=== PATIENT | female | born 2000 | race Caucasian/White ===

== ENCOUNTER 2023-02-16 16:03 | Outpatient (OUT) | payer OTHER, SELFPAY ==
[2023-02-18 06:09] LABS: HBsAg Screen Negative (Negative); HCV Ab Non Reactive (Non Reactive); HIV Ab/p24 Ag Screen Non Reactive (Non Reactive); Hep A Ab, IgM Negative (Negative); Hep B Core Ab, IgM Negative (Negative)
[2023-02-18 07:09] LABS: HSV 1 IgG, Type Spec 2.28 index (0.00-0.90); HSV 2 IgG, Type Spec <0.91 index (0.00-0.90)
[2023-02-18 22:07] LABS: Neisseria gonorrhoeae, NAA Negative (Negative)
[2023-02-20 03:07] LABS: RPR Non Reactive (Non Reactive)
== END 2023-02-16 16:04 | disposition home or self-care (01) ==
PROVIDERS: PCP Family Medicine; Visit Provider Family Medicine
DX: Z20.2 Contact with and (suspected) exposure to infections with a predominantly sexual mode of transmission (principal)
CPT/HCPCS: 36415; 80074; 86592; 86695; 86696; 87389; 87491; 87591

== ENCOUNTER 2024-06-04 10:29 | Emergency (ER) | payer OTHER, SELFPAY ==
[2024-06-04 10:34] VITALS: BP 158/95; PULSE 72; TEMP 37.1; O2SAT 95; BMI 32.0
--- NOTE | 2024-06-04 10:44 | ED_ITS ---
HPI - Female Genitourinary General Chief complaint: Urogenital-Female Stated complaint: WANTS TO BE TESTED FOR STD Time Seen by Provider: 06/04/24 10:41 Source: patient Mode of arrival: walk-in Limitations: no limitations History of Present Illness HPI Narrative: The patient is a 24-year-old female with no significant known past medical history, patient coming to the ER requesting to be tested for STD with no sym ptoms, the patient is requesting retesting before she started having sexual encounter with a new partner The patient is not being specific with her symptoms or that how many partners she had before this but she mentioned that she was tested before and she is coming again to be tested Related Data Allergies Allergy/AdvReac Type Severity Reaction Status Date / Time No Known Drug Allergies Allergy Verified 06/04/24 10:38 Review of Systems ROS Status of ROS 10 or more systems reviewed and unremark able except as noted in history and below PFSH PFSH Social History Little interest or pleasure in doing things: not at all Feeling down, depressed, or hopeless: not at all Exam Narrative Exam Narrative: Nurses notes and vital signs reviewed and patient is not hypoxic. General: Well-appearing and in no apparent distress. Skin: Warm, dry, no pallor noted. No rash. Head: Normocephalic, atraumatic. Neck: Supple, non-tender. Eye: Pupils are equal, round and EOMI. No scleral icterus. Ears, Nose, Mouth, and Throat: TM are clear, no nasal mucosal hypertrophy. Oral mucosa is moist, no posterior oropharynx erythema, uvula is mid-line Cardiovascular: Regular Rate and Rhythm without murmur, gallop or rub. Respiratory: No accessory muscle use or respiratory distress. Lungs are clear to auscultation, no wheezing, rales or rhonchi Chest Wall: no tenderness Back: No midline thoracic or lumbar vertebral tenderness. No CVA tenderness Musculoskeletal: normal ROM, no calf or popliteal tenderness, no lower extremity edema/swelling GI: Abdomen is soft, non-distended. Normal bowel sounds. No masses appreciated. No tenderness to palpation. No rebound, guarding, or rigidity noted. Neurological: A&O x4. No cranial nerve dysfunction observed. No truncal ataxia. Moves all extremities. Sensation intact. Psychiatric: Cooperative and interactive. Normal mood and affect. Constitutional Vital Signs, click to edit/add: Last Vital Signs Temp 98.7 F 06/04/24 10:34 Pulse 72 06/04/24 10:34 Resp 16 06/04/24 10:34 BP 158/95 H 06/04/24 10:34 Pulse Ox 95 06/04/24 10:34 O2 Del Method Room Air 06/04/24 10:34 Course Vital Signs Vital signs: Vital Signs Temperature 98.7 F 06/04/24 10:34 Pulse Rate 72 06/04/24 10:34 Respiratory Rate 16 06/04/24 10:34 Blood Pressure 158/95 H 06/04/24 10:34 Pulse Oximetry 95 06/04/24 10:34 Oxygen Delivery Method Room Air 06/04/24 10:34 Temperature 98.7 F 06/04/24 10:34 Pulse Rate 72 06/04/24 10:34 Respiratory Rate 16 06/04/24 10:34 Blood Pressure 158/95 H 06/04/24 10:34 Pulse Oximetry 95 06/04/24 10:34 Oxygen Delivery Method Room Air 06/04/24 10:34 MDM - Female Genitourinary MDM Narrative Medical decision making narrative: The patient had her urine sent for chlamydia and gonorrhea testing because of her concern but I did explain to her that STI testing should be done by her primary care doctor once a year including syphilis and HIV The patient is to follow up with primary care physician in next 2-3 days or to return to the emergency department should any of the signs or symptoms worsen or new symptoms develop. The patient agrees with the following Diagnosis and Treatment plan and the patient will be discharged home. Discharge Plan Discharge Chief Complaint: Urogenital-Female Clinical Impression: Concern about STI in female without diagnosis Patient Disposition: Home, Self-Care Time of Disposition Decision: 10:45 Condition: Good Print Language: Romanian Referrals: Awais Luna MD [Primary Care Provider] - 1 week
[2024-06-06 22:08] LABS: Neisseria gonorrhoeae, NAA Negative (Negative)
== END 2024-06-04 10:58 | disposition home or self-care (01) ==
PROVIDERS: Emergency Provider Emergency Medicine; PCP Family Medicine
DX: Z20.2 Contact with and (suspected) exposure to infections with a predominantly sexual mode of transmission (principal)
CPT/HCPCS: 87491; 87591; 99283